=== PATIENT | male | born 1975 | race Two or more races ===

== ENCOUNTER 2020-04-09 08:11 | Emergency (ER) | payer MEDICAID, OTHER ==
[~2020-04-09] VITALS: Ht 188 cm; Wt 81.6 kg
[2020-04-09 09:50] LABS: Basophils # (auto) 0 10 ^3/uL (0-0.2); Basophils % (auto) 0.2 % (0.0-2.0); Eosinophils # (auto) 0 10 ^3/uL (0-0.8); Eosinophils % (auto) 0.1 % (0.0-7.0); Hematocrit 44.4 % (41.0-53.0); Hemoglobin 15.4 g/dL (13.5-17.5); Lymphocytes # (auto) 0.9 10 ^3/uL (0.4-5.4); Lymphocytes % (auto) 7.5 % (10.0-50.0); Mean Corpuscular Hemoglobin 30.8 pg (28.0-32.0); Mean Corpuscular Hgb Conc. 34.6 g/dL (32.0-36.0); Monocytes # (auto) 0.8 10 ^3/uL (0-1.3); Monocytes % (auto) 6.7 % (0.0-12.0); Neutrophils % (auto) 85.5 % (37.0-80.0); Platelet Count (auto) 187 10^3/uL (140-450); Red Blood Cells 4.99 10^6/uL (4.5-5.90); Red Cell Distribution Width 12.2 % (11.8-14.3); White Blood Cell 11.7 10^3/uL (4.4-10.8)
[2020-04-09 10:06] LABS: Albumin 3.8 g/dL (3.4-5.0); Anion Gap 4 (5-15); Blood Urea Nitrogen 12 mg/dL (7-18); Calcium 8.7 mg/dL (8.5-10.1); Carbon Dioxide 27 mmol/L (21-32); Chloride 103 mmol/L (98-107); Glucose 107 mg/dL (74-106); Potassium 4.1 mmol/L (3.5-5.1); Sodium 134 mmol/L (136-145)
[2020-04-09 10:11] LABS: Alanine Aminotransferase 21 U/L (16-61); Alkaline Phosphatase 96 U/L (45-117); Aspartate Aminotransferase 10 U/L (15-37); BUN/Creatinine Ratio 10.3; Bilirubin, Total 0.5 mg/dL (0.2-1.0); Blood Alcohol < 3.0 mg/dL (0-5); GFR African American 88 mL/min; GFR Non-African American 73 mL/min; Total Protein 7.4 g/dL (6.4-8.2)
[2020-04-10 03:37] LABS: Urine Amorphous Crystal FEW /hpf (None Seen); Urine Bacteria FEW /hpf (None Seen); Urine Blood Negative /uL (Negative); Urine Mucus MANY (None Seen); Urine Specific Gravity 1.032 (1.001-1.035); Urine WBC 4 /hpf (0 - 3)
[2020-04-10 03:47] LABS: Alcohol, Urine < 3.0 mg/dL (0-10); Amphetamine Screen, Urine NEGATIVE (NEGATIVE); Barbiturate Scree,Urine NEGATIVE (NEGATIVE); Benzodiazephine Screen, Urine NEGATIVE (NEGATIVE); Cannabinoid Screen, Urine POSITIVE (NEGATIVE); Cocaine Screen, Urine NEGATIVE (NEGATIVE); Opiate Scree,Urine NEGATIVE (NEGATIVE); Phencyclidine Screen, Urine NEGATIVE (NEGATIVE)
[2020-04-12] MEDS ORDERED: risperiDONE 1 MG TAB PO SCH (10:00)
[2020-04-12] MEDS: LORazepam 0.5 MG TAB PO SCH ×2 (10:25→22:22)
[2020-04-12] MEDS ORDERED: risperiDONE 1 MG TAB ONE (22:06)
[2020-04-12] MEDS ORDERED: LORazepam 0.5 MG TAB ONE (22:06)
[2020-04-12] MEDS: risperiDONE 1 MG TAB PO SCH (22:23)
[2020-04-13] MEDS: risperiDONE 1 MG TAB PO SCH (10:00)
[2020-04-13 11:09] VITALS: BP 128/84
[2020-04-13] MEDS: LORazepam 0.5 MG TAB PO SCH (11:22)
[2020-04-13] MEDS ORDERED: LORazepam 0.5 MG TAB ONE (11:22)
== END 2020-04-13 11:28 ==
LOC: EDBD 08:11 → ER 08:11
DX: S60.811A Abrasion of right wrist, initial encounter (principal); T43.012A Poisoning by tricyclic antidepressants, intentional self-harm, initial encounter; R41.82 Altered mental status, unspecified; Z20.828 Contact with and (suspected) exposure to other viral communicable diseases; Y92.89 Other specified places as the place of occurrence of the external cause; Y93.89 Activity, other specified; Y99.8 Other external cause status
CPT/HCPCS: 36415; 70450; 72125; 80053; 80307; 80320; 81001; 85025; 87426